=== PATIENT | female | born 1965 | race Caucasian/White ===

== ENCOUNTER → 2016-12-27 | Outpatient (CLI) | payer BC ==
[2016-12-27 20:24] LABS: ALT 40 U/L (9-52); AST 28 U/L (14-36); Alkaline Phosphatase 75 U/L (38-126); Anion Gap 10 mmol/L; Blood Urea Nitrogen 17 mg/dL (7-17); Calcium 9.5 mg/dL (8.4-10.2); Carbon Dioxide 29 mmol/L (22-30); Chloride 102 mmol/L (98-107); Glucose 81 mg/dL (74-99); Non-African American GFR(MDRD) >60 (>60 ml/min/1.73 sqM); Sodium 141 mmol/L (137-145); Total Bilirubin 0.5 mg/dL (0.2-1.3); Total Protein 6.7 g/dL (6.3-8.2)
[2016-12-27 20:27] LABS: Potassium 4.4 mmol/L (3.5-5.1)
== END | disposition home or self-care (01) ==
LOC: MMGSC 10:23
PROVIDERS: ATTEND Family Medicine
DX: R63.5 Abnormal weight gain (principal)
CPT/HCPCS: 36415; 80053; 84439; 84443

== ENCOUNTER → 2017-03-14 | Outpatient (CLI) | payer BC ==
[2017-03-14 09:45] LABS: Basophils % (A) 0 %; CH 30.5; CHCM 33.8; Eosinophils # (A) 0.2 k/uL (0-0.7); Eosinophils % (A) 2 %; HDW 2.28; HGB 14.1 gm/dL (11.4-16.0); Luc # (Auto) 0.13; Luc % (Auto) 2; Lymphocytes # (A) 1.6 k/uL (1.0-4.8); Lymphocytes % (A) 22 %; MCH 30.3 pg (25.0-35.0); MCHC 33.5 g/dL (31.0-37.0); MCV 90.6 fL (80.0-100.0); Mean Platelet Volume 7.6; Monocytes # (A) 0.3 k/uL (0-1.0); Monocytes % (A) 4 %; Neutrophils # (A) 5.2 k/uL (1.3-7.7); Neutrophils % (A) 70 %; RBC 4.64 m/uL (3.80-5.40); RDW 13.3 % (11.5-15.5); WBC 7.4 k/uL (3.8-10.6); WBC (Perox) 7.52
== END | disposition home or self-care (01) ==
LOC: LABPAT 09:06
PROVIDERS: ATTEND Orthopaedic Surgery
DX: Z01.812 Encounter for preprocedural laboratory examination (principal)
CPT/HCPCS: 85025

== ENCOUNTER 2017-03-29 06:41 | Day surgery (SDC) | payer BC ==
[2017-03-22 10:31] VITALS: BMI 36.3
--- NOTE | 2017-03-28 12:17 | HP ---
CHIEF COMPLAINT: Left knee pain. 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 Currently she is off work because of this. She is taking ibuprofen for pain relief. She denies previous problems. PAST MEDICAL HISTORY: Negative. PAST SURGICAL HISTORY: Significant for section. CURRENT MEDICATIONS: 1. Cyclobenzaprine. 2. Ibuprofen. 3. Simvastatin. 4. Tramadol. She denies drug allergies. Family history is significant for cancer and heart disease. SOCIAL HISTORY: Negative for current tobacco or alcohol use. A 16-point review of systems is otherwise reviewed and is noncontributory. On examination, the patient is approximately 5 foot 2, 201 pounds of endomorphic habitus. HEENT exam is nonfocal. Neck is supple. She has painless passive motion of her left hip. Straight leg raise is negative. Active motion left knee -10 to 105 degrees of flexion. She has moderate guarding. She has a large effusion. She is tender about the medial and lateral joint line. Collaterals are stable, Josemanuel is 1+, posterior drawer is negative. Her distal neurovascular exam appears to be intact in the left lower extremity. MRI report for the left knee shows a ACL rupture with lateral tibial plateau edema. IMPRESSION: Left knee acute ACL tear with hemarthrosis. RECOMMENDATIONS: I talked to the patient at length regarding her treatment options. At this point, she is quite symptomatic in having giving way. Will plan to proceed with left knee arthroscopic evaluation with probable ACL debridement. We will likely institute postoperative rehabilitation and potentially bracing. Risks and benefits are discussed at length in layman's terms. DONNA
[~2017-03-29 06:41] MED LIST: DEXAMETHASONE SOD PHOSPHATE 10 MG/ML 1 ML VIAL IV ONE; LACTATED RINGERS 1,000 ML IV SCH; MIDAZOLAM 2 MG/2 ML VIAL IV PRN; SCOPOLAMINE 1.5MG/72HR PATCH TRANSDERM ONE
[2017-03-29] MEDS ORDERED: LACTATED RINGERS 1,000 ML IV ONE ×2 (07:11→08:55)
[2017-03-29] MEDS ORDERED: LIDOCAINE 1% 20 ML VIAL (10MG/ML) FOR IV START INTRADERMA ONE (07:12)
[2017-03-29] MEDS: ONDANSETRON 4 MG/2 ML VIAL IVP ONE ×2 (07:12→10:20)
[2017-03-29] MEDS ORDERED: SODIUM CHLORIDE 0.9% 50 ML with ceFAZolin 2,000 MG IV ONE ×2 (07:50)
[2017-03-29] MEDS ORDERED: LIDOCAINE 1% INJ 10MG/ML (20 ML MDV) ONE (07:50)
[2017-03-29] MEDS ORDERED: MIDAZOLAM 2 MG/2 ML VIAL ONE (07:50)
[2017-03-29] MEDS ORDERED: SUCCINYLCHOLINE CHLORIDE 100 MG/5 ML SYR IV ONE (07:50)
[2017-03-29] MEDS ORDERED: ESMOLOL 100 MG/10 ML VIAL ONE (07:50)
[2017-03-29] MEDS ORDERED: fentaNYL (PF) 50 MCG/ML 2 ML AMP ONE (07:50)
[2017-03-29] MEDS ORDERED: KETOROLAC 30 MG/ML 1 ML VIAL ONE (07:50)
[2017-03-29] MEDS ORDERED: PROPOFOL 10 MG/ML 20 ML VIAL IV ONE (07:50)
--- NOTE | 2017-03-29 08:45 | P.OP ---
Date of Procedure: 03/29/17 Preoperative Diagnosis: Left knee ACL rupture Postoperative Diagnosis: Left knee ACL rupture, grade 2 chondral injury distal medial portion medial femoral condyle, reactive synovitis of the medial and patellofemoral compartments Procedure(s) Performed: Left knee arthroscopic ACL debridement, medial femoral chondrectomy, partial synovectomy of the medial and patellofemoral compartments Implants: Anesthesia: GETA Surgeon: Darrian Eastman Estimated Blood Loss (ml): 5 Pathology: none sent Condition: stable Disposition: PACU Indications for Procedure: The patient's a 51-year-old female who presents after a recent twisting injury to her left knee. She was having pain and mechanical symptoms consistent with an acute ACL rupture. A discussion of the risks and benefits of operative intervention versus conservative measures was made with patient. She opted to proceed with surgery. Operative options to include arthroscopic debridement versus ACL reconstruction were also discussed. At this point she opted to proceed with arthroscopic evaluation and debridement with postoperative rehabilitation. Specific risks of surgery to include infection, neurovascular injury, development of blood clots, possible persistence of instability and need for subsequent procedures was discussed. Informed consent was obtained. Operative Findings: As below Description of Procedure: The patient was brought to the operating room, and after induction of general anesthesia examined the left knee. Collaterals were stable, Josemanuel was 1+ with a soft endpoint, pivot shift was positive, and posterior drawer was negative. The left lower extremity was prepped and draped in normal fashion. A superior lateral portal was made through a 3 mm skin incision superior and lateral to the patella. This was used for outflow. A lateral portal was made through a 5 mm vertical skin incision lateral to the patella tendon above the joint line. Diagnostic arthroscopy was performed. A medial portal was made through a similar incision medial to the patella tendon above the joint line. On inspection of the medial compartment, the medial meniscus appeared to be stable and intact. A grade 2 chondral injury involving the distal medial portion of the medial femoral condyle was noted with a small loose chondral flap. This was debrided back to stable base with a motorized shaver. Reactive synovitis involving the anterior medial compartment was debrided with motorized shaver. A portion the ACL stump was also impinging on the medial compartment. This was debrided with motorized shaver back to stable base. On inspection of the notch, the anterior cruciate ligament appeared to be ruptured off the lateral wall. The remaining ligament appeared to be adherent to the posterior cruciate ligament. On inspection of the lateral compartment, no significant meniscal or cartilage pathology was noted. On inspection patellofemoral articulation, there was reactive synovitis to be with a motorized shaver. Minimal degenerative changes were noted. The gutters were clear debris. The knee was then thoroughly irrigated. The portals were closed with Steri-Strips. A sterile dressing was applied in addition to a compression stocking. The patient was awoken from general anesthesia and transferred to recovery room in good condition. Blood loss less than 5 mL. No complications were incurred.
[2017-03-29 08:53] VITALS: RESP 16; TEMP 97.1
[2017-03-29] MEDS: HYDROmorphone 1 MG/ML 1 ML SYRINGE IVP PRN ×4 (09:07→09:29)
[2017-03-29] MEDS: MEPERIDINE 50 MG/ML SYRINGE IVP ONE ×2 (09:53→10:07)
[2017-03-29] MEDS ORDERED: HYDROcodone/APAP 5-325MG 1 EACH TAB PO ONE (10:52)
[2017-03-29] MEDS ORDERED: PROMETHAZINE INJ 25 MG/ML 1 ML VIAL IVPB ONE (12:20)
[2017-03-29 12:40] VITALS: BP 138/82; PULSE 101
== END 2017-03-29 12:58 | disposition home or self-care (01) ==
LOC: OR 06:41
PROVIDERS: ATTEND Orthopaedic Surgery
DX: S83.32XA Tear of articular cartilage of left knee, current, initial encounter (principal); S83.512A Sprain of anterior cruciate ligament of left knee, initial encounter; X50.1XXA Overexertion from prolonged static or awkward postures, initial encounter; M65.862 Other synovitis and tenosynovitis, left lower leg; Z79.1 Long term (current) use of non-steroidal anti-inflammatories (NSAID); Z79.891 Long term (current) use of opiate analgesic; Z79.899 Other long term (current) drug therapy
CPT/HCPCS: 81025; 29888; J2250; J1100; J2550; J2175; J2405; J2001; J3010; J1885; J1170; J0690; J0330; J2704

== ENCOUNTER → 2017-05-08 | Outpatient (CLI) | payer BC | END | disposition home or self-care (01) | LOC: MMGSC 15:30 | PROVIDERS: ATTEND Family Medicine | DX: N92.6 Irregular menstruation, unspecified (principal) | CPT/HCPCS: 36415; 83001; 83002 ==

== ENCOUNTER → 2017-08-16 | Outpatient (CLI) | payer BC ==
[2017-08-16 18:52] LABS: ALT 38 U/L (9-52); AST 25 U/L (14-36); Albumin 4.1 g/dL (3.5-5.0); Alkaline Phosphatase 58 U/L (38-126); Anion Gap 9 mmol/L; Blood Urea Nitrogen 18 mg/dL (7-17); Calcium 9.7 mg/dL (8.4-10.2); Carbon Dioxide 27 mmol/L (22-30); Chloride 101 mmol/L (98-107); Cholesterol 185 mg/dL (<200); Glucose 84 mg/dL (74-99); HDL Cholesterol 53 mg/dL (40-60); LDL Cholesterol,Calculated 117 mg/dL (0-99); Potassium 4.3 mmol/L (3.5-5.1); Sodium 137 mmol/L (137-145); Total Bilirubin 0.4 mg/dL (0.2-1.3); Total Protein 6.8 g/dL (6.3-8.2); Triglycerides 77 mg/dL (<150)
== END | disposition home or self-care (01) ==
LOC: MMGSC 09:17
PROVIDERS: ATTEND Family Medicine
DX: E78.5 Hyperlipidemia, unspecified (principal)
CPT/HCPCS: 36415; 80053; 80061

== ENCOUNTER → 2018-02-21 | Outpatient (CLI) | payer BC ==
--- NOTE | 2018-02-21 08:50 | MR ---
EXAMINATION TYPE: MR cervical spine wo con DATE OF EXAM: 02/21/2018 COMPARISON: None HISTORY: Cervicalgia, popping in neck TECHNIQUE: Multiplanar, multisequence images of the cervical spine were acquired. C2-C3: No evidence for degenerative disc disease. No disc bulge/herniation or protrusion. No Canal stenosis. Foramina are patent bilaterally. Mild hypertrophic change of the facets. C3-C4: No evidence for degenerative disc disease. No disc bulge/herniation or protrusion. No Canal stenosis. Foramina are patent bilaterally. Mild hypertrophic change of the facets. C4-C5: Mild uncovertebral joint hypertrophy. Mild hypertrophic change of the facets. Minimal posterio r disc bulging but no canal stenosis or focal herniation. Mild bilateral foraminal encroachment. C5-C6: No evidence for degenerative disc disease. No disc bulge/herniation or protrusion. No Canal stenosis. Foramina are patent bilaterally. Mild hypertrophic change of the facets. Mild uncovertebra l joint hypertrophy. C6-C7: No evidence for degenerative disc disease. No disc bulge/herniation or protrusion. No Canal stenosis. Foramina are patent bilaterally. C7-T1: No evidence for degenerative disc disease. No disc bulge/herniation or protrusion. No Canal stenosis. Foramina are patent bilaterally. Cervical segments are intact. There is normal alignment. Cervical spinal cord is of normal signal. Craniovertebral junction relationships are within normal limits. Tiny 3 mm cystic area near the pos terior aspect of the left lobe of the thyroid adjacent to the esophagus is nonspecific due to small s ize. IMPRESSION: Multilevel mild facet arthropathy with minimal disc bulging and uncovertebral joint hypertrophy at C4 -C5 resulting in very mild bilateral foraminal encroachment. No disc herniation or canal stenosis at any of the visualized levels.
== END | disposition home or self-care (01) ==
LOC: RADMRIMAIN 08:09
PROVIDERS: ATTEND Psychiatry & Neurology Neurology
DX: M48.8X2 Other specified spondylopathies, cervical region (principal); M50.221 Other cervical disc displacement at C4-C5 level
CPT/HCPCS: 72141

== ENCOUNTER → 2019-10-21 | Day surgery (SDC) | payer BC ==
[2019-10-21 08:39] VITALS: RESP 16
--- NOTE | 2019-10-21 09:36 | P.OP ---
Date of Procedure: 10/21/19 Preoperative Diagnosis: Mammographic abnormality right breast/heterogeneous microcalcifications Postoperative Diagnosis: Same Procedure(s) Performed: Right breast stero-tactic core biopsy Anesthesia: local Surgeon: Sherry Saini Pathology: other (Breast tissue) Condition: stable Disposition: same day Indications for Procedure: Heterogeneous microcalcifications right breast Operative Findings: Microcalcifications in specimen Description of Procedure: Angela is a 54-year-old white female who had a routine mammogram performed in September 2019. She was noted to have heterogeneous calcifications in the upper outer quadrant of the right breast for which biopsy was recommended. Risks and benefits of stereotactic core biopsy were discussed with the patient. Alternatives which would include watchful waiting versus open biopsy in the operating room were discussed but not recommended. The patient wished to proceed. Patient was taken to stereotactic core biopsy room and positioned on the Lorad table. A CC from above approach was utilized. A dental scheduler film was obtained in the area of concern was identified. The skin was prepped using Betadine. 30 mL of 1% lidocaine were used to anesthetize the area of concern. 20 mL had epinephrine in it. An 18-gauge vacuum-assisted core rotating biopsy needle was driven to the correct coordinates. The needle was fired and a post-fire film noted that the needle was in the correct location. 11 core biopsies were obtained. Radiograph of the specimen revealed the area of concern had been obtained. A secure marked marker was placed. This was confirmed to be in the correct location. The specimen was sent to pathology. The patient will follow with Dr. Romero. The patient tolerated the procedure in stable condition.
[2019-10-21 09:44] VITALS: BP 116/73; PULSE 92; TEMP 97.8
--- NOTE | 2019-10-21 11:23 | MM ---
EXAMINATION TYPE: MG stereo VAD BX RT DATE OF EXAM: 10/21/2019 COMPARISON: Outside diagnostic mammogram dated 10/12/2019 CLINICAL HISTORY: Indeterminate right breast calcifications for which stereotactic guided biopsy was recommended. TECHNIQUE: Stereotactic guided core biopsy of right breast. FINDINGS: The procedure of stereotactic guided core biopsy was explained to the patient. Benefits, a lternatives, and risks were discussed. An informed consent was then obtained. Preprocedural timeout was performed. [facility] was [facility]. Shortness pathway was CC from above approach. I perform ed the localization, then surgeon, Dr. Nick Devi performed the remainder of the procedure. A vacuum assisted biopsy gun was used to obtain multiple core samples. The patient tolerated the procedure well without any immediate complication. The patient was kept in the radiology department for short stay after the procedure and then discharged home in stable condi tion. Targeted calcifications are identified in specimen mammogram. Post biopsy mammogram shows the clip to appear in satisfactory position relative to the targeted area of concern on the preprocedure images. IMPRESSION: SUCCESSFUL, UNCOMPLICATED STEREOTACTIC GUIDED CORE BIOPSY OF RIGHT UPPER OUTER QUADRANT CALCIFICATION S SPANNING APPROXIMATELY 5 MM, FULL PATHOLOGY RESULTS TO FOLLOW.
== END ==
LOC: RADMAMWWP 07:28
PROVIDERS: ATTEND Surgery
DX: N60.11 Diffuse cystic mastopathy of right breast (principal); R92.0 Mammographic microcalcification found on diagnostic imaging of breast
CPT/HCPCS: 88305; 19081; A4648; J2001

== ENCOUNTER → 2019-10-21 | Outpatient (CLI) | payer BC ==
[2019-10-21 07:53] VITALS: BP 113/77; PULSE 94; RESP 16; TEMP 97.9
--- NOTE | 2019-10-21 08:29 | P.GSHP ---
History of Present Illness H&P Date: 10/21/19 Chief Complaint: Mammographic abnormality right breast [Is a 54-year-old white female who had a routine screening mammogram performed on . This revealed an area of indeterminate calcifications in the lateral aspect of the right breast the upper outer quadrant region. The patient was recommended to have a diagnostic mammogram of the right breast which was performed and 220 420. This revealed grouped heterogeneous calcifications upper outer quadrant for which stereotactic core biopsy was recommended. The patient herself has not felt any changes in her breasts. She has no history of any trauma or infection in the breast. She has not had any prior breast biopsies. She is not complaining of any pain in the breast. She is not complaining of any masses lumps or nodules in the breast. Caffeine: 2 cups of coffee per day Nicotine: The patient does not smoke and is not exposed to secondhand smoke, she used to smoke but stopped 27 years ago Theophylline: Patient does not eat chocolate secondary to migraine headaches The patient is not using any hormone replacement therapy, does use black cohash Family history: mother: ovarian at 32 Hormonal History: menarche: 13 , 1 miscarriage, first born at 40, breast fed: yes menopause: 53, hot flashes now BCP: 18 years hormones: black cohash Surgical history: 1. two C-Sections 2. left knee surgery 3. back nerves "burned" Medical History: 1. back pain, DJD 2. left wrist, deterating 3. arthritis 4. migraines 5. hypothyroid Social History: smoke: none alcohol: wine on weekend drugs: none - Constitutional Constitutional: Reports sweats - EENT Eyes: denies blurred vision, denies pain Ears: deny: decreased hearing, tinnitus Ears, nose, mouth and throat: Reports headache - Breasts Breasts: bilateral: as per HPI - Cardiovascular Cardiovascular: Denies chest pain, Denies shortness of breath - Respiratory Comment: former smoker Respiratory: Denies cough, Denies 7 - Gastrointestinal Comment: had a colonoscopy last year told to return in 5 years Gastrointestinal: Reports constipation - Genitourinary (Female) Genitourinary: Denies dysuria, Denies hematuria - Menstruation Menstruation: Reports postmenopausal - Musculoskeletal Comment: arthritis - Integumentary Integumentary: Denies pruritus, Denies rash - Neurological Neurological: Denies numbness, Denies weakness - Psychiatric Psychiatric: Denies anxiety, Denies depression - Endocrine Comment: fatigue Endocrine: Reports fatigue, Denies weight change - Hematologic/Lymphatic Comment: none - Allergic/Immunologic Allergic/Immunologic: Reports as per HPI Past Medical History Past Medical History: Hyperlipidemia, Thyroid Disorder Additional Past Medical History / Comment(s): migraines; degenerative disc disease lumbar; History of Any Multi-Drug Resistant Organisms: None Reported Past Surgical History: Section, Orthopedic Surgery Additional Past Surgical History / Comment(s): left knee surgery repair 2016; section x2 2005 & 2007; radiofrequency ablation of lumbar spine 2000; Past Anesthesia/Blood Transfusion Reactions: No Reported Reaction Past Psychological History: No Psychological Hx Reported Smoking Status: Former smoker Past Alcohol Use History: None Reported Past Drug Use History: None Reported - Past Family History Mother Family Medical History: Cancer Additional Family Medical History / Comment(s): ovarian; passed from an aneurysm at age 55; Medications and Allergies Home Medications Medication Instructions Recorded Confirmed Type Cyclobenzaprine [Flexeril] 10 mg PO HS 03/22/17 10/21/19 History Ibuprofen [Motrin] 800 mg PO Q6H PRN 03/22/17 10/21/19 History Simvastatin [Zocor] 10 mg PO HS 03/22/17 10/21/19 History ZOLMitriptan 5 mg PO DAILY PRN 03/22/17 10/21/19 History Black Cohosh 540 mg PO AC-LUNCH 10/15/19 10/21/19 History Levothyroxine Sodium [Synthroid] 75 mcg PO QAM 10/15/19 10/21/19 History Linaclotide [Linzess] 145 mcg PO QAM 10/15/19 10/21/19 History Topiramate [Topamax] 25 mg PO HS 10/15/19 10/21/19 History Allergies Allergy/AdvReac Type Severity Reaction Status Date / Time No Known Allergies Allergy Verified 10/21/19 07:40 Surgical - Exam Vital Signs Temp Pulse Resp BP Pulse Ox 97.9 F 94 16 113/77 97 10/21/19 07:43 10/21/19 07:43 10/21/19 07:43 10/21/19 07:43 10/21/19 07:43 BMI 32.7 - General well developed, well nourished, no distress - Eyes normal ocular movement - ENT no hearing loss, no congestion - Neck no masses, trachea midline - Respiratory normal expansion, normal respiratory effort, clear to percussion, clear to auscultation - Cardiovascular Rhythm: regular Heart Sounds: normal: S1, S2 - Abdomen Abdomen: soft, non tender, bowel sounds, no guarding, no rigid, no rebound - Integumentary normal turgor - Neurologic no disoriented, no combative - Musculoskeletal brace on left wrist normal gait, normal posture - Psychiatric oriented to time, oriented to person, oriented to place, speech is normal, memory intact breast exam: BRA 40D ptosis grade 3 Inspection: No nipple inversion, dark nevus left axilla Palpation: Right breast: Multi-positional exam no dominant masses or nodules of concern fibrocystic changes slight increased fullness in the upper outer aspect right axilla: no adenopathy of concern left breast: multi-positional exam no dominate masses or nodules of concern left axilla: no adenopathy of concern Results Mammogram results reviewed Assessment and Plan Assessment: Impression: 1. Radiographic abnormality heterogeneous microcalcifications right breast upper outer quadrant 2. Left breast no radiographic lesions of concern 3. Fibrocystic breast changes 4. Family history of cancer/mother ovarian cancer 5. Arthritis 6. Degenerative disc disease 7. Hypothyroidism 8. Migraine history 9. Menopausal/recently started black cohosh 1. Former smoker Plan: 1. Stereotactic core biopsy right breast 2. Extra caution this patient is positioned on the stereotactic table secondary to back pain and degenerative disc disease 3. Patient has stopped Motrin approximately 1 week prior This and benefits of the procedure I discussed with the patient. These include bleeding, infection, reaction to the anesthetic. We also include the possibility that the area of concern is not sampled with that the area of concern. Have a lesion which was warrant interventional biopsy. The patient understands and wishes to proceed. She also understands that a marking clip left in place. Alternative procedures which would include observation or excision in the operating room I also discussed but not recommended at this time. Cc: Dr.Laura Curran encounter 35 minutes, > 50% of time spent in planning and counselling Time with Patient: Greater than 30
== END ==
LOC: WWCWWP 07:15
PROVIDERS: ATTEND Surgery
DX: Z53.9 Procedure and treatment not carried out, unspecified reason (principal)

== ENCOUNTER → 2020-04-21 | Outpatient (CLI) | payer BC | END | disposition home or self-care (01) | LOC: LABWHC1 13:01 | PROVIDERS: ATTEND Family Medicine | DX: Z03.818 Encounter for observation for suspected exposure to other biological agents ruled out (principal) | CPT/HCPCS: U0003; C9803 ==

== ENCOUNTER → 2020-04-27 | Outpatient (CLI) | payer BC ==
--- NOTE | 2020-04-27 08:57 | MM ---
Reason for exam: follow-up at short interval from prior study. Last mammogram was performed 6 months ago. History: Patient is postmenopausal and had first child at age 40. Benign MG stereo VAD BX RT of the right breast, October 21, 2019. Physical Findings: Nurse did not find any significant physical abnormalities on exam. MG 3D Diag Mammo W/Cad RT CC and MLO view(s) were taken of the right breast. Prior study comparison: October 21, 2019, mammogram. October 05, 2019, mammogram. July 25, 2018, mammogram. The breast tissue is heterogeneously dense. This may lower the sensitivity of mammography. Previous mammotome biopsy in the right breast. There is chronic nodularity in the right breast. No significant new findings when compared with previous films. These results were verbally communicated with the patient and result sheet given to the patient on 04/27/20. ASSESSMENT: Benign, BI-RAD 2 RECOMMENDATION: Routine screening mammogram of both breasts in 6 months.
== END | disposition home or self-care (01) ==
LOC: RADMAMWWP 07:34
PROVIDERS: ATTEND Surgery
DX: R92.8 Other abnormal and inconclusive findings on diagnostic imaging of breast (principal)
CPT/HCPCS: 77061; 77065

== ENCOUNTER → 2020-06-02 | Outpatient (CLI) | payer BC ==
--- NOTE | 2019-11-04 10:59 | P.PN ---
Progress Note - Text Progress Note Date: 11/04/19 Angela is a 55 year old whtie female who is status post a right breast stereotactic core biopsy performed on 3420. Pathology revealed fibrocystic changes including fibrosis, cysts, sclerosing adenosis, apocrine metaplasia, and calcifications. Intraluminal calcium oxalate crystals were identified. This was felt to be concordant and repeat right breast mammogram in 6 months time with physician exam is recommended. [place] [address] postoperatively. However secondary to diffuse regarding the chin virus she was rescheduled for a 6 month follow-up. The patient at this time denies any pain masses infection or ecchymosis of the breast. She states that initially post procedure she had some discomfort but this has resolved. I've discussed the patient's pathology results with her. She has discussed with me the fact that she has had a cough routinely in both the following spring of the year. At times the cough is dry but does not seem to be dry at this time. She is taking her temperature daily as she is concerned regarding the chin virus. If she has any worrisome symptoms she will follow with her primary care doctor. At this time with respect to her breast she is to follow up with us in 6 months with repeat right breast mammogram. If any other concerns she will follow sooner. This was a telephone call: Time 5 minutes
[2020-06-02 15:43] VITALS: BP 116/75; PULSE 91; RESP 12; TEMP 98.3
--- NOTE | 2020-06-02 15:59 | P.PN ---
Subjective Progress Note Date: 06/02/20 Principal diagnosis: fibrocystic breast disease [Is a 54-year-old white female who had a routine screening mammogram performed on . This revealed an area of indeterminate calcifications in the lateral aspect of the right breast the upper outer quadrant region. The patient was recommended to have a diagnostic mammogram of the right breast which was performed and [address]. This revealed grouped heterogeneous calcifications upper outer quadrant for which stereotactic core biopsy was recommended. This was preformed and the results were benign. She has no history of any trauma or infection in the breast. She is not complaining of any pain in the breast. She is not complaining of any masses lumps or nodules in the breast. She had a six-month follow-up right breast mammogram on 99 this was benign BIRADS 2. Caffeine: 2 cups of coffee per day Nicotine: The patient does not smoke and is not exposed to secondhand smoke, she used to smoke but stopped 27 years ago Theophylline: Patient does not eat chocolate secondary to migraine headaches The patient is not using any hormone replacement therapy, does use black cohash Family history: mother: ovarian at 32 Hormonal History: menarche: 13 , 1 miscarriage, first born at 40, breast fed: yes menopause: 53, hot flashes now BCP: 18 years hormones: black cohash Surgical history: 1. two C-Sections 2. left knee surgery 3. back nerves "burned" 4. left hand surgery; bone removed and tendon replaced in spot Medical History: 1. back pain, DJD 2. left wrist, deteriorating 3. arthritis 4. migraines 5. hypothyroid Social History: smoke: none alcohol: wine on weekend drugs: none - Constitutional Constitutional: Reports sweats - EENT Eyes: denies blurred vision, denies pain Ears: deny: decreased hearing, tinnitus Ears, nose, mouth and throat: Reports headache - Breasts Breasts: bilateral: as per HPI - Cardiovascular Cardiovascular: Denies chest pain, Denies shortness of breath - Respiratory Comment: former smoker Respiratory: Denies cough - Gastrointestinal Comment: had a colonoscopy last year told to return in 5 years Gastrointestinal: Reports constipation - Genitourinary (Female) Genitourinary: Denies dysuria, Denies hematuria - Menstruation Menstruation: Reports postmenopausal - Musculoskeletal Comment: arthritis - Integumentary Integumentary: Denies pruritus, Denies rash - Neurological Neurological: Denies numbness, Denies weakness - Psychiatric Psychiatric: Denies anxiety, Denies depression - Endocrine Comment: fatigue Endocrine: Reports fatigue, Denies weight change - Hematologic/Lymphatic Comment: none Objective - Vital Signs Vital signs: Vital Signs Temp 98.3 F 06/02/20 15:37 Pulse 91 06/02/20 15:37 Resp 12 06/02/20 15:37 BP 116/75 06/02/20 15:37 Pulse Ox 98 06/02/20 15:37 Intake & Output 06/01/20 06/02/20 06/02/20 18:59 06:59 18:59 Weight 87.543 kg - Exam BMI 35.3 - Constitutional General appearance: Present: obese - EENT ENT: Present: hearing grossly normal - Neck Neck: Present: normal ROM - Respiratory Respiratory: bilateral: CTA - Cardiovascular Rhythm: regular Heart sounds: normal: S1, S2 - Gastrointestinal General gastrointestinal: Present: normal bowel sounds, soft - Integumentary Integumentary: Present: normal turgor - Musculoskeletal Musculoskeletal: Present: gait normal - Psychiatric Psychiatric: Present: A&O x's 3, appropriate affect, intact judgment & insight - Additional findings Additional findings: breast exam: BRA: 42B inspection: grade 3 ptosis bilateral Palpation: Right breast: Multi-positional exam no dominant masses or nodules of concern Right axilla: No adenopathy of concern Left breast: Multi-positional exam no dominant masses or nodules of concern, fibrocystic changes Left axilla: No adenopathy of concern Assessment and Plan Assessment: Impression: 1. back pain, DJD 2. left wrist, deteriorating 3. arthritis 4. migraines 5. hypothyroid 6. Fibrocystic breast changes bilateral recent right breast mammogram no lesions of concern Plan: 1. Bilateral mammogram in 6 months with position exam at that time 2. Medical management of medical conditions CC: Dr. Mercer encounter 15 minutes, > 50% of time in planning and counselling
== END | disposition home or self-care (01) ==
LOC: WWCWWP 14:55
PROVIDERS: ATTEND Surgery
DX: Z53.9 Procedure and treatment not carried out, unspecified reason (principal)

== ENCOUNTER → 2020-10-26 | Outpatient (CLI) | payer BC ==
--- NOTE | 2020-10-27 13:45 | MM ---
Reason for exam: screening (asymptomatic). Last mammogram was performed 6 months ago. History: Patient is postmenopausal and had first child at age 40. Benign MG stereo VAD BX RT of the right breast, October 21, 2019. Taking estrogen beginning at age 55. Physical Findings: A clinical breast exam by your physician is recommended on an annual basis and results should be correlated with mammographic findings. MG Screening Mammo w CAD Bilateral CC and MLO view(s) were taken. Prior study comparison: April 27, 2020, right breast MG 3d diag mammo w/cad RT. October 21, 2019, mammogram. The breast tissue is heterogeneously dense. This may lower the sensitivity of mammography. Previous mammotome biopsy in the right breast. No significant changes when compared with prior studies. ASSESSMENT: Benign, BI-RAD 2 RECOMMENDATION: Routine screening mammogram of both breasts in 1 year.
== END | disposition home or self-care (01) ==
LOC: RADMAMWWP 08:46
PROVIDERS: ATTEND Surgery
DX: Z12.31 Encounter for screening mammogram for malignant neoplasm of breast (principal)
CPT/HCPCS: 77067

== ENCOUNTER → 2020-11-03 | Outpatient (CLI) | payer BC | END | disposition home or self-care (01) | LOC: LABWHC1 15:27 | PROVIDERS: ATTEND Family Medicine | DX: Z20.822 Contact with and (suspected) exposure to COVID-19 (principal) | CPT/HCPCS: U0003; C9803; U0005 ==

== ENCOUNTER → 2020-12-09 | Outpatient (CLI) | payer BC ==
[2020-12-09 08:52] VITALS: BP 118/79; PULSE 100; RESP 18; TEMP 97.6
--- NOTE | 2020-12-09 09:25 | P.PN ---
Subjective Progress Note Date: 12/09/20 Principal diagnosis: fibrocystic breast disease fibrocystic breast disease Angela is a 55-year-old white female who had a routine screening mammogram performed on . This revealed an area of indeterminate calcifications in the lateral aspect of the right breast the upper outer quadrant region. The patient was recommended to have a diagnostic mammogram of the right breast which was performed on . This revealed grouped heterogeneous calcifications upper outer quadrant for which stereotactic core biopsy was recommended. This was preformed and the results were benign. She had no history of any trauma or infection in the breast. She was not complaining of any pain in the breast. She was not complaining of any masses lumps or nodules in the breast. She had a six-month follow-up right breast mammogram on 9919 this was benign BIRADS 2. She most recently had a bilateral mammogram on 10-26-20. This was benign BIRAD 2. She has no complaints of any new lumps masses or nodules of concern in her breast. She is not complaining of any nipple discharge or skin changes. She is not complaining of any pain in her breasts. Caffeine: 2 cups of coffee per day Nicotine: The patient does not smoke and is not exposed to secondhand smoke, she used to smoke but stopped 28 years ago Theophylline: Patient does not eat chocolate secondary to migraine headaches The patient is not using any hormone replacement therapy, was using black cohash but now uses YUVFEM this is from DR. Fuentes and is a vaginal suppository Family history: mother: ovarian cancer at 32 Hormonal History: menarche: 13 , 1 miscarriage, first born at 40, breast fed: yes menopause: 53, hot flashes improved still occasional BCP: 18 years hormones: YUVFEM Surgical history: 1. two C-Sections 2. left knee surgery 3. back nerves "burned" 4. left hand surgery; bone removed and tendon replaced in spot Medical History: 1. 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 left wrist, deteriorating 3. arthritis 4. migraines 5. hypothyroid Social History: smoke: none alcohol: wine on weekend drugs: none - Constitutional Constitutional: Reports sweats - EENT Eyes: denies blurred vision, denies pain Ears: deny: decreased hearing, tinnitus Ears, nose, mouth and throat: Reports headache - Breasts Breasts: bilateral: as per HPI - Cardiovascular Cardiovascular: Denies chest pain, Denies shortness of breath - Respiratory Comment: former smoker Respiratory: Denies cough - Gastrointestinal Comment: had a colonoscopy last year told to return in 5 years Gastrointestinal: Reports constipation - Genitourinary (Female) Genitourinary: Denies dysuria, Denies hematuria - Menstruation Menstruation: Reports postmenopausal - Musculoskeletal Comment: arthritis - Integumentary Integumentary: Denies pruritus, Denies rash - Neurological Neurological: Denies numbness, Denies weakness - Psychiatric Psychiatric: Denies anxiety, Denies depression - Endocrine Comment: fatigue Endocrine: Reports fatigue, Denies weight change - Hematologic/Lymphatic Objective - Vital Signs Vital signs: Vital Signs Temp 97.6 F 12/09/20 08:50 Pulse 100 12/09/20 08:50 Resp 18 12/09/20 08:50 BP 118/79 12/09/20 08:50 Pulse Ox 97 12/09/20 08:50 Intake & Output 12/08/20 12/09/20 12/09/20 18:59 06:59 18:59 Weight 90.265 kg - Exam BMI 36.4 - Constitutional General appearance: Present: obese - EENT Eyes: Present: EOMI ENT: Present: hearing grossly normal - Neck Neck: Present: normal ROM - Respiratory Respiratory: bilateral: CTA - Cardiovascular Rhythm: regular Heart sounds: normal: S1, S2 - Integumentary Integumentary: Present: normal turgor - Musculoskeletal Musculoskeletal: Present: gait normal - Psychiatric Psychiatric: Present: A&O x's 3, appropriate affect, intact judgment & insight - Additional findings Additional findings: Breast exam: BRA: 38C inspection: grade 3 ptosis bilateral palpation: right breast: Multi-positional exam fibrocystic changes, no dominant masses or nodules of concern Right axilla: No adenopathy of concern Left breast: Multi-positional exam fibrocystic changes, dominant masses or nodules of concern Left axilla: No adenopathy of concern Assessment and Plan Assessment: Impression: 1. Fibrocystic breast changes 2. Perimenopausal symptoms of vaginal dryness recently started vaginal suppository YUVFEM 3. Status post stereotactic core biopsy 3420 fibrocystic breast changes Plan: 1. Close surveillance 2. Repeat bilateral mammogram in 1 year with physician exam at that time 3. Patient to call sooner if any questions or concerns CC: Dr. Curran, Dr. Fuentes
== END ==
LOC: WWCWWP 08:37
PROVIDERS: ATTEND Surgery
DX: N60.11 Diffuse cystic mastopathy of right breast (principal); N60.12 Diffuse cystic mastopathy of left breast; N89.8 Other specified noninflammatory disorders of vagina; E03.9 Hypothyroidism, unspecified; Z87.891 Personal history of nicotine dependence

== ENCOUNTER → 2021-10-30 | Outpatient (CLI) | payer BC ==
--- NOTE | 2021-10-31 11:02 | MM ---
Reason for exam: screening (asymptomatic). Last mammogram was performed 1 year ago. History: Patient is postmenopausal and had first child at age 40. Benign MG stereo VAD BX RT of the right breast, October 21, 2019. Taking estrogen beginning at age 55. Physical Findings: A clinical breast exam by your physician is recommended on an annual basis and results should be correlated with mammographic findings. MG Screening Mammo w CAD Bilateral CC, MLO, and XCCL view(s) were taken. Prior study comparison: October 26, 2020, bilateral MG screening mammo w CAD. April 27, 2020, right breast MG 3d diag mammo w/cad RT. There are scattered fibroglandular densities. Previous mammotome biopsy in the right breast. There is chronic nodularity in the right breast. There is no discrete abnormality. ASSESSMENT: Benign, BI-RAD 2 RECOMMENDATION: Routine screening mammogram of both breasts in 1 year.
== END | disposition home or self-care (01) ==
LOC: RADMAMWWP 08:53
PROVIDERS: ATTEND Surgery
DX: Z12.31 Encounter for screening mammogram for malignant neoplasm of breast (principal)
CPT/HCPCS: 77067

== ENCOUNTER → 2021-12-07 | Outpatient (CLI) | payer BC ==
[2021-12-07 08:47] VITALS: BP 120/84; PULSE 106; RESP 18; TEMP 97.8
--- NOTE | 2021-12-07 09:13 | P.PN ---
Subjective Progress Note Date: 12/07/21 Principal diagnosis: Fibrocystic breast changes fibrocystic breast disease fibrocystic breast disease Angela is a 56-year-old white female who had a routine screening mammogram performed on . This revealed an area of indeterminate calcifications in the lateral aspect of the right breast the upper outer quadrant region. The patient was recommended to have a diagnostic mammogram of the right breast which was performed on . This revealed grouped heterogeneous calcifications upper outer quadrant for which stereotactic core biopsy was recommended. This was preformed and the results were benign. She had no history of any trauma or infection in the breast. She was not complaining of any pain in the breast. She was not complaining of any masses lumps or nodules in the breast. She had a six-month follow-up right breast mammogram on 9919 this was benign BIRADS 2. She most recently had a bilateral mammogram on 10-30-21. This was benign BIRAD 2. She has no complaints of any new lumps masses or nodules of concern in her breast. She is not complaining of any nipple discharge or skin changes. She is not complaining of any pain in her breasts. Caffeine: 2 cups of coffee per day Nicotine: The patient does not smoke and is not exposed to secondhand smoke, she used to smoke but stopped 28 years ago Theophylline: Patient does not eat chocolate secondary to migraine headaches The patient had been using hormone replacement therapy, but has stopped was using black cohash but stopped, also stopped using YUVFEM from DR. Fuentes and is a vaginal suppository She is not using anything at this time but is having hot flashes; She has an appointment with Dr. Fuentes located near [facility] Family history: mother: ovarian cancer at 32 Hormonal History: menarche: 13 , 1 miscarriage, first born at 40, breast fed: yes menopause: 53, hot flashes improved still occasional BCP: 18 years hormones: YUVFEM Surgical history: 1. two C-Sections 2. left knee surgery 3. back nerves "burned" 4. left hand surgery; bone removed and tendon replaced in spot Medical History: 1. 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 left wrist, deteriorating 3. arthritis 4. migraines 5. hypothyroid Social History: smoke: none alcohol: wine on weekend drugs: none - Constitutional Constitutional: Reports sweats - EENT Eyes: denies blurred vision, denies pain Ears: deny: decreased hearing, tinnitus Ears, nose, mouth and throat: Reports headache - Breasts Breasts: bilateral: as per HPI - Cardiovascular Cardiovascular: Denies chest pain, Denies shortness of breath - Respiratory Comment: former smoker Respiratory: Denies cough - Gastrointestinal Comment: had a colonoscopy last year told to return in 5 years Gastrointestinal: Reports constipation - Genitourinary (Female) Genitourinary: Denies dysuria, Denies hematuria - Menstruation Menstruation: Reports postmenopausal - Musculoskeletal Comment: arthritis - Integumentary Integumentary: Denies pruritus, Denies rash - Neurological Neurological: Denies numbness, Denies weakness - Psychiatric Psychiatric: Denies anxiety, Denies depression - Endocrine Comment: fatigue Endocrine: Reports fatigue, Denies weight change - Hematologic/Lymphatic Objective - Vital Signs Vital signs: Vital Signs Temp 97.8 F 12/07/21 08:44 Pulse 106 H 12/07/21 08:44 Resp 18 12/07/21 08:44 BP 120/84 12/07/21 08:44 Pulse Ox 95 12/07/21 08:44 Intake & Output 12/06/21 12/07/21 12/07/21 18:59 06:59 18:59 Weight 106.141 kg - Exam BMI 41.5 - Constitutional General appearance: Present: cooperative - EENT Eyes: Present: EOMI ENT: Present: hearing grossly normal - Neck Neck: Present: normal ROM - Respiratory Respiratory: bilateral: CTA - Cardiovascular Rhythm: regular Heart sounds: normal: S1, S2 - Integumentary Integumentary: Present: normal turgor - Musculoskeletal Musculoskeletal: Present: gait normal - Psychiatric Psychiatric: Present: A&O x's 3, appropriate affect, intact judgment & insight - Additional findings Additional findings: Breast examination: Bra: 42C Inspection: Grade 3 ptosis bilaterally Palpation: Purpose: Multiple positional exam fibrocystic changes no dominant masses or nodules of concern Axilla: No active adenopathy of concern Left breast: Multiple positional exam fibrocystic changes no dominant masses or nodules of concern Left axilla: No adenopathy of concern Assessment and Plan Assessment: Impression: 1. 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 left wrist, deteriorating 3. arthritis 4. migraines 5. hypothyroid 6. Fibrocystic breast changes Plan: Repeat bilateral mammogram in 1 year Patient to follow up with [facility] secondary to hot flashes symptomatic Follow-up here in 1 year Cc: Dr. Fuentes
== END ==
LOC: WWCWWP 08:36
PROVIDERS: ATTEND Surgery
DX: N60.11 Diffuse cystic mastopathy of right breast (principal); N60.12 Diffuse cystic mastopathy of left breast; M54.9 Dorsalgia, unspecified; M19.90 Unspecified osteoarthritis, unspecified site; G43.909 Migraine, unspecified, not intractable, without status migrainosus; E03.9 Hypothyroidism, unspecified; Z87.891 Personal history of nicotine dependence; Z91.048 Other nonmedicinal substance allergy status

== ENCOUNTER 2022-08-03 09:53 | Day surgery (SDC) | payer BC ==
[2022-08-01 11:54] VITALS: BMI 43.4
[2022-08-03] MEDS ORDERED: LACTATED RINGERS 1,000 ML IV SCH (10:37)
[2022-08-03 10:53] VITALS: RESP 16; TEMP 97.2
[2022-08-03] MEDS ORDERED: ONDANSETRON 4 MG/2 ML VIAL ONE (10:58)
[2022-08-03] MEDS ORDERED: ONDANSETRON 4 MG/2 ML VIAL IVP ONE (10:59)
[2022-08-03] MEDS ORDERED: fentaNYL (PF) 50 MCG/1 ML VIAL IV ONE (11:02)
[2022-08-03] MEDS ORDERED: PROPOFOL 10 MG/ML 20 ML VIAL IV ONE (11:51)
[2022-08-03] MEDS ORDERED: LIDOCAINE 2% INJ 20 MG/ML (2 ML VIAL) ONE (11:51)
--- NOTE | 2022-08-03 12:08 | P.PCN ---
Date of Procedure: 08/03/22 Procedure(s) Performed: BRIEF HISTORY: Patient is a 57-year-old pleasant female scheduled for an elective colonoscopy as a part of evaluation of prior history of colon polyps. Her last colonoscopy was 5 years ago. PROCEDURE PERFORMED: Colonoscopy. PREOPERATIVE DIAGNOSIS:history of colon polyps . IV sedation per Anesthesia. PROCEDURE: After informed consent was obtained, the patient, was brought into the endoscopy unit. IV sedation was administered by Anesthesia under continuous monitoring. Digital rectal examination was normal. Initially the Olympus CF-160 flexible video colonoscope was then inserted in the rectum, gradually advanced into the cecum without any difficulty. Careful examination was performed as the scope was gradually being withdrawn. Ileocecal valve and the appendiceal orifice were visualized and appeared normal. Prep was excellent. Mucosa of the cecum, ascending colon, transverse colon, descending colon, sigmoid colon, and rectum appeared normal. Retroflexion was performed in the rectum and small internal hemorrhoids were seen. The patient tolerated the procedure well. IMPRESSION: Normal-appearing colon from rectum to cecum with no evidence of colorectal neoplasia. RECOMMENDATIONS: Findings of this examination were discussed with the patient as well as a family. She was advised to have a repeat screening colonoscopy in 10 years.
[2022-08-03 12:20] VITALS: PULSE 98
[2022-08-03 12:45] VITALS: BP 138/75
[2022-08-03] MEDS ORDERED: ONDANSETRON ODT 4 MG TAB PO ONE (13:11)
== END 2022-08-03 13:22 | disposition home or self-care (01) ==
LOC: ORWHC2ENDO 09:53
PROVIDERS: ATTEND Internal Medicine Gastroenterology
DX: Z12.11 Encounter for screening for malignant neoplasm of colon (principal); Z86.010 Personal history of colon polyps; K64.8 Other hemorrhoids
CPT/HCPCS: 45378; J2405; J2704; J2001; J3010

== ENCOUNTER → 2022-10-30 | Outpatient (CLI) | payer BC ==
--- NOTE | 2022-10-31 08:58 | MM ---
Reason for Exam: Screening (asymptomatic). Last screening mammogram was performed 12 month(s) ago. Patient History: Menarche at age 14. First Full-Term at age 40. Late child-bearing (after 30). Postmenopausal. Currently using Estrogen, starting at age 55. Currently using Progesterone, starting at age 57. 10/21/2019, Benign Core Biopsy on the right side. Risk Values: Viola 5 year model risk: 1.9%. NCI Lifetime model risk: 13.1%. Prior Study Comparison: 04/27/2020 Right Diagnostic Mammogram, [facility]. 10/26/2020 Bilateral Screening Mammogram, [facility]. 10/30/2021 Bilateral Screening Mammogram, [facility]. Tissue Density: There are scattered fibroglandular densities. Analyzed By CAD. Overall Assessment: Incomplete: need additional imaging evaluation, BI-RAD 0 Management: Special View Mammogram of the left breast. Electronically signed and approved by: Willem Duran M.D.
== END | disposition home or self-care (01) ==
LOC: RADMAMWWP 09:57
PROVIDERS: ATTEND Surgery
DX: Z12.31 Encounter for screening mammogram for malignant neoplasm of breast (principal); Z78.0 Asymptomatic menopausal state
CPT/HCPCS: 77067

== ENCOUNTER → 2022-11-02 | Outpatient (CLI) | payer BC ==
--- NOTE | 2022-11-02 11:03 | MM ---
Reason for Exam: Additional evaluation requested from abnormal screening. Last screening mammogram was performed less than 1 month ago. Patient History: Menarche at age 14. First Full-Term at age 40. Late child-bearing (after 30). Postmenopausal. Currently using Estrogen, starting at age 55. Currently using Progesterone, starting at age 57. 10/21/2019, Benign Core Biopsy on the right side. Risk Values: Viola 5 year model risk: 1.9%. NCI Lifetime model risk: 13.1%. Prior Study Comparison: 10/26/2020 Bilateral Screening Mammogram, [facility]. 10/30/2021 Bilateral Screening Mammogram, [facility]. 10/30/2022 Bilateral MG screening mammo w CAD, [facility]. Tissue Density: Left: The breast tissue is heterogeneously dense. This may lower the sensitivity of mammography. Findings: Analyzed By CAD. Persistent 5 mm nodular density within the left breast only appreciated on the CC view. This persists with compression. No suspicious calcifications within the left breast. Overall Assessment: Incomplete: need additional imaging evaluation, BI-RAD 0 Management: Diagnostic Breast Ultrasound of the left breast. A clinical breast exam by your physician is recommended on an annual basis and results should be correlated with mammographic findings. This exam should not preclude additional follow-up of suspicious palpable abnormalities. Results were given to the patient verbally at the time of exam. Electronically signed and approved by: Sourav Ramirez D.O.
--- NOTE | 2022-11-02 11:13 | USB ---
Reason for Exam: Additional evaluation requested from abnormal screening. Patient History: Menarche at age 14. First Full-Term at age 40. Late child-bearing (after 30). Postmenopausal. Currently using Estrogen, starting at age 55. Currently using Progesterone, starting at age 57. 10/21/2019, Benign Core Biopsy on the right side. Risk Values: Viola 5 year model risk: 1.9%. NCI Lifetime model risk: 13.1%. Prior Study Comparison: 10/26/2020 Bilateral Screening Mammogram, [facility]. 10/30/2021 Bilateral Screening Mammogram, [facility]. 10/30/2022 Bilateral MG screening mammo w CAD, [facility]. Findings: The medial section of the breast of the left breast and the retroareolar of the left breast were scanned. Targeted ultrasound of the left breast from 6-12 o'clock was performed. There is a cluster of cysts demonstrated within the left breast at 10:00 6 Persian from the nipple measuring 0.8 x 0.4 x 0.9 cm. Overall Assessment: Benign, BI-RAD 2 Management: Screening Mammogram of both breasts in 1 year. A clinical breast exam by your physician is recommended on an annual basis and results should be correlated with mammographic findings. This exam should not preclude additional follow-up of suspicious palpable abnormalities. Results were given to the patient verbally at the time of exam. Electronically signed and approved by: Sourav Ramirez D.O.
== END | disposition home or self-care (01) ==
LOC: RADMAMWWP 09:56
PROVIDERS: ATTEND Surgery
DX: R92.8 Other abnormal and inconclusive findings on diagnostic imaging of breast (principal); Z78.0 Asymptomatic menopausal state
CPT/HCPCS: 77065

== ENCOUNTER → 2022-11-15 | Outpatient (CLI) | payer BC ==
[2022-11-15 10:07] VITALS: BP 154/100; PULSE 93; RESP 17; TEMP 97.8
--- NOTE | 2022-11-15 10:24 | P.PN ---
Subjective Progress Note Date: 11/15/22 Principal diagnosis: fibrocystic breast changes fibrocystic breast disease fibrocystic breast disease Angela is a 56-year-old white female who had a routine screening mammogram performed on . This revealed an area of indeterminate calcifications in the lateral aspect of the right breast the upper outer quadrant region. The patient was recommended to have a diagnostic mammogram of the right breast which was performed on . This revealed grouped heterogeneous calcifications upper outer quadrant for which stereotactic core biopsy was recommended. This was preformed and the results were benign. She had no history of any trauma or infection in the breast. She was not complaining of any pain in the breast. She was not complaining of any masses lumps or nodules in the breast. She had a six-month follow-up right breast mammogram on 9919 this was benign BIRADS 2. She most recently had a bilateral mammogram on 10-30-22. This led to left breast dx mammogram and ultrasound on 11-02-22 which revealed cyst. This was benign BIRAD 2. She has no complaints of any new lumps masses or nodules of concern in her breast. She is not complaining of any nipple discharge or skin changes. She is not complaining of any pain in her breasts. Personally reviewed her mammogram and ultrasound. Caffeine: 2 cups of coffee per day Nicotine: The patient does not smoke and is not exposed to secondhand smoke, she used to smoke but stopped 28 years ago chocolate: Patient does not eat chocolate secondary to migraine headaches The patient is on progesterone 200 mg daily and an estridiol patch 0.1 mg Sat and Saturday from DR. Dawson secondary to perimenopausal symptoms of hot flashes and vaginal dryness; she is having periods on this treatment Family history: mother: ovarian cancer at 32 Hormonal History: menarche: 13 , 1 miscarriage, first born at 40, breast fed: yes menopause: 53, hot flashes improved still occasional BCP: 18 years hormones: YUVFEM in the past, now treatment as above Surgical history: 1. two C-Sections 2. left knee surgery 3. back nerves "burned" 4. left hand surgery; bone removed and tendon replaced in spot 5. right hip injection Medical History: 1. 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 left wrist, deteriorating 3. arthritis 4. migraines 5. hypothyroid 6. breakthrough vaginal bleeding Social History: smoke: none alcohol: wine on weekend drugs: none - Constitutional Constitutional: Reports sweats - EENT Eyes: denies blurred vision, denies pain Ears: deny: decreased hearing, tinnitus Ears, nose, mouth and throat: Reports headache - Breasts Breasts: bilateral: as per HPI - Cardiovascular Cardiovascular: Denies chest pain, Denies shortness of breath - Respiratory Comment: former smoker Respiratory: Denies cough - Gastrointestinal Comment: had a colonoscopy last year told to return in 5 years Gastrointestinal: Reports constipation - Genitourinary (Female) Genitourinary: Denies dysuria, Denies hematuria - Menstruation Menstruation: as above - Musculoskeletal Comment: arthritis - Integumentary Integumentary: Denies pruritus, Denies rash - Neurological Neurological: Denies numbness, Denies weakness - Psychiatric Psychiatric: Denies anxiety, Denies depression - Endocrine Comment: fatigue Endocrine: Reports fatigue, Denies weight change - Hematologic/Lymphatic Objective - Vital Signs Vital signs: Vital Signs Temp 97.8 F 11/15/22 10:05 Pulse 93 11/15/22 10:05 Resp 17 11/15/22 10:05 BP 154/100 11/15/22 10:05 Pulse Ox 97 11/15/22 10:05 FiO2 Intake & Output 11/14/22 11/15/22 11/15/22 18:59 06:59 18:59 Weight 102.965 kg - Constitutional General appearance: Present: cooperative - EENT Eyes: Present: EOMI ENT: Present: hearing grossly normal - Neck Neck: Present: normal ROM - Respiratory Respiratory: bilateral: CTA - Cardiovascular Rhythm: regular Heart sounds: normal: S1, S2 - Gastrointestinal General gastrointestinal: Present: soft - Integumentary Integumentary: Present: normal turgor - Musculoskeletal Musculoskeletal: Present: gait normal - Psychiatric Psychiatric: Present: A&O x's 3, appropriate affect, intact judgment & insight - Additional findings Additional findings: Breast examination: Bra: 42C Inspection: Grade 3 ptosis bilaterally Palpation: Purpose: Multiple positional exam fibrocystic changes no dominant masses or nodules of concern Axilla: No active adenopathy of concern Left breast: Multiple positional exam fibrocystic changes no dominant masses or nodules of concern Left axilla: No adenopathy of concern Assessment and Plan Assessment: Impression: 1. 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 left wrist, deteriorating 3. arthritis 4. migraines 5. hypothyroid 6. Fibrocystic breast changes 7. breakthrough vaginal bleeding Plan: Repeat bilateral mammogram in 1 year Patient to follow up with [facility] Follow-up here in 1 year CC: Dr. Curran, Dr. Dawson
== END ==
LOC: WWCWWP 09:11
PROVIDERS: ATTEND Surgery
DX: N60.11 Diffuse cystic mastopathy of right breast (principal); Z12.31 Encounter for screening mammogram for malignant neoplasm of breast; E03.9 Hypothyroidism, unspecified; G43.909 Migraine, unspecified, not intractable, without status migrainosus; N93.9 Abnormal uterine and vaginal bleeding, unspecified; M13.80 Other specified arthritis, unspecified site; M25.832 Other specified joint disorders, left wrist; Z91.048 Other nonmedicinal substance allergy status; Z87.891 Personal history of nicotine dependence

== ENCOUNTER → 2023-01-17 | Outpatient (CLI) | payer BC ==
[2023-01-17 15:53] LABS: Basophils # (A) 0.03 X 10*3/uL (0.00-0.10); Basophils % (A) 0.5 %; Eosinophils # (A) 0.25 X 10*3/uL (0.04-0.35); HCT 44.9 % (37.2-46.3); HGB 14.2 g/dL (12.0-15.0); Immature Grans, Automated 0.3 %; Lymphocytes # (A) 1.99 X 10*3/uL (0.90-5.00); Lymphocytes % (A) 32.2 %; MCHC 31.6 g/dL (32.0-37.0); MCV 91.8 fL (80.0-97.0); Mean Platelet Volume 10.5 fL (9.5-12.2); Monocytes # (A) 0.41 X 10*3/uL (0.20-1.00); Monocytes % (A) 6.6 %; NRBC Per 100 WBC 0 /100 WBCS (0.0-0.0); Neutrophils # (A) 3.48 X 10*3/uL (1.80-7.70); Neutrophils % (A) 56.4 %; Platelet Count 287 X 10*3/uL (140-440); RBC 4.89 X 10*6/uL (4.10-5.20); RDW 12.9 % (11.5-14.5); WBC 6.18 X 10*3/uL (4.50-10.00)
== END | disposition home or self-care (01) ==
LOC: LABPAT 08:28
PROVIDERS: ATTEND Obstetrics & Gynecology
DX: Z01.812 Encounter for preprocedural laboratory examination (principal); N95.0 Postmenopausal bleeding
CPT/HCPCS: 36415; 85025

== ENCOUNTER 2023-02-15 07:52 | Day surgery (SDC) | payer BC ==
[~2023-02-15 07:52] MED LIST changes: -DEXAMETHASONE SOD PHOSPHATE 10 MG/ML 1 ML VIAL IV ONE; -LACTATED RINGERS 1,000 ML IV SCH; -MIDAZOLAM 2 MG/2 ML VIAL IV PRN; +Pre Op ABX Message 1 EACH MISC MISCELLANE ONE; -SCOPOLAMINE 1.5MG/72HR PATCH TRANSDERM ONE
[2023-02-15] MEDS ORDERED: LACTATED RINGERS 1,000 ML IV ONE (08:26)
[2023-02-15] MEDS ORDERED: LIDOCAINE 1% (10MG/ML) FOR IV START INTRADERMA ONE (08:26)
[2023-02-15] MEDS ORDERED: ONDANSETRON 4 MG/2 ML VIAL ONE ×2 (08:36→09:52)
[2023-02-15] MEDS ORDERED: ONDANSETRON 4 MG/2 ML VIAL IVP ONE (08:39)
[2023-02-15] MEDS ORDERED: DEXAMETHASONE SOD PHOSPHATE 4 MG/ML 1 ML VIAL IVP ONE (08:39)
[2023-02-15] MEDS ORDERED: SCOPOLAMINE 1 MG/72 HR PATCH TRANSDERM ONE (08:41)
[2023-02-15] MEDS ORDERED: KETOROLAC 15 MG/ML 1 ML VIAL ONE (09:52)
[2023-02-15] MEDS ORDERED: fentaNYL (PF) 50 MCG/ML 2 ML AMP ONE (09:52)
[2023-02-15] MEDS ORDERED: PROPOFOL 10 MG/ML 20 ML VIAL IV ONE (09:52)
[2023-02-15] MEDS ORDERED: SUCCINYLCHOLINE CHLORIDE 200 MG/10 ML VIAL IV ONE (09:52)
[2023-02-15] MEDS ORDERED: LIDOCAINE 2% INJ 20 MG/ML (2 ML VIAL) ONE (09:52)
[2023-02-15] MEDS ORDERED: MIDAZOLAM 2 MG/2 ML VIAL ONE (09:52)
[2023-02-15] MEDS ORDERED: LIDOCAINE 0.5%-EPI 1:200,000 50 ML VIAL SQ ONE ×2 (09:57→10:14)
--- NOTE | 2023-02-15 10:31 | P.OP ---
Date of Procedure: 02/15/23 Preoperative Diagnosis: Menopausal bleeding Cervical stenosis Thickened endometrium Postoperative Diagnosis: Postmenopausal bleeding atrophic endometrium Procedure(s) Performed: Diagnostic hysteroscopy with D&C Anesthesia: BONNIE local Surgeon: Maricruz Dawson Estimated Blood Loss (ml): 5 IV fluids (ml): 300 Urine output (ml): 25 Pathology: other (Endometrial curettings) Condition: stable Disposition: PACU Indications for Procedure: 's menopausal bleeding with findings of thickened endometrium by ultrasound, 8 mm. Cervical stenosis precluded office biopsy. Operative Findings: Atrophic endometrium with no intracavitary lesions. Description of Procedure: After the patient was met in the preoperative holding area and all questions answered, she was taken to the operating room where anesthetic was administered without incident. She was in positioned, prepped and draped in the dorsal lithotomy position. Bladder was drained for approximately 25 mL of clear urine. Exam under anesthetic was undertaken but was limited secondary to body habitus. Uterus not enlarged. Weighted speculum was then placed in the vagina and the cervix was grasped anteriorly with a single-tooth tenaculum. Paracervical block with lidocaine plus epinephrine was placed. Uterus sounded to 7 cm. Cervix sequentially dilated without difficulty with Hegar dilators to allow for passage of the diagnostic hysteroscope. The hysteroscope was introduced and a very pale and smooth and atrophic endometrium was noted. The bilateral tubal ostia were easily visualized. There were no gross intracavitary lesions, no active bleeding and no notable fluffy endometrium. The hysteroscope was then removed and the cervix was further dilated to allow for passage of the small sharp banjo curet. Banjo curet was introduced and the uterine cavity was circumferentially curettaged with scant tissue obtained consistent with findings on the hysteroscopy. Curettings were handed off as pathology specimen. Instruments removed from the cervix. Cervix was observed and no active bleeding was noted. Speculum was removed from the vagina. Patient was awoken from anesthetic without incident. She was transported recovery in good condition. All counts reported as correct
[2023-02-15] MEDS ORDERED: droPERidol 5 MG/2 ML VIAL IVP ONE (10:36)
[2023-02-15 10:49] VITALS: TEMP 97
[2023-02-15 10:50] VITALS: RESP 16
[2023-02-15 12:02] VITALS: BP 124/71; PULSE 95
== END 2023-02-15 12:22 | disposition home or self-care (01) ==
LOC: OR 07:52
PROVIDERS: ATTEND Obstetrics & Gynecology
DX: N92.4 Excessive bleeding in the premenopausal period (principal); M48.02 Spinal stenosis, cervical region; N85.8 Other specified noninflammatory disorders of uterus; E78.5 Hyperlipidemia, unspecified; E07.9 Disorder of thyroid, unspecified; K21.9 Gastro-esophageal reflux disease without esophagitis; Z79.899 Other long term (current) drug therapy; Z98.890 Other specified postprocedural states
CPT/HCPCS: 58558; J2250; J0330; J1100; J2405; J3010; J1885; J2704; J1790; J2001; 88305

== ENCOUNTER → 2023-09-26 | Outpatient (CLI) | payer BC ==
[2023-09-26 10:30] LABS: INR 0.9 (<1.2); Partial Thromboplastin Time 22.6 sec (22.0-30.0); Prothrombin Time 9.8 sec (10.0-12.5)
[2023-09-26 16:41] LABS: HCT 48.1 % (37.2-46.3); HGB 15.5 g/dL (12.0-15.0); MCH 28.9 pg (27.0-32.0); MCHC 32.2 g/dL (32.0-37.0); MCV 89.7 FL (80.0-97.0); Mean Platelet Volume 10.3 FL (9.5-12.2); NRBC Per 100 WBC 0 X 10*3/uL (0.00-0.01); Platelet Count 336 X 10*3/uL (140-440); RBC 5.36 X 10*6/uL (4.10-5.20); RDW 13.1 % (11.5-14.5); WBC 6.97 X 10*3/uL (4.50-10.00)
[2023-09-26 17:01] LABS: ALT 26 U/L (8-44); AST 19 U/L (13-35); Albumin 4.7 g/dL (3.8-4.9); Albumin/Globulin Ratio 1.88 Ratio (1.60-3.17); Alkaline Phosphatase 102 U/L (41-126); BUN/Creat Ratio 19.89 Ratio (12.00-20.00); Blood Urea Nitrogen 17.9 mg/dL (9.0-27.0); Calcium 10.2 mg/dL (8.7-10.3); Carbon Dioxide 26.8 mmol/L (21.6-31.8); Chloride 100 mmol/L (96-109); Globulin 2.5 g/dL (1.6-3.3); Glucose 91 mg/dL (70-110); Potassium 4.8 mmol/L (3.5-5.5); Sodium 139 mmol/L (135-145); Total Bilirubin 0.4 mg/dL (0.3-1.2); Total Protein 7.2 g/dL (6.2-8.2)
== END | disposition home or self-care (01) ==
LOC: LABWHC1 08:39
PROVIDERS: ATTEND Family Medicine
DX: Z01.810 Encounter for preprocedural cardiovascular examination (principal)
CPT/HCPCS: 36415; 80053; 83036; 85027; 85610; 85730; 86850; 86900; 86901

== ENCOUNTER → 2023-12-10 | Outpatient (CLI) | payer BC ==
--- NOTE | 2023-12-12 13:19 | MM ---
Reason for Exam: Screening (asymptomatic). Last mammogram was performed 1 year(s) and 1 month(s) ago. Patient History: Menarche at age 14. First Full-Term at age 40. Late child-bearing (after 30). Postmenopausal. Currently using Estrogen, starting at age 55. Currently using Progesterone, starting at age 57. 10/21/2019, Benign Core Biopsy on the right side. Risk Values: Viola 5 year model risk: 2.0%. NCI Lifetime model risk: 12.8%. Prior Study Comparison: 10/30/2021 Bilateral Screening Mammogram, [facility]. 10/30/2022 Bilateral MG screening mammo w CAD, [facility]. 11/02/2022 Left MG work up mamm w CAD LT, [facility]. Tissue Density: The breasts are heterogeneously dense, which may obscure small masses. Findings: Analyzed By CAD. There is no suspicious group of microcalcifications or new suspicious mass in either breast. Overall Assessment: Benign, BI-RAD 2 Management: Screening Mammogram of both breasts in 1 year. . Patient should continue monthly self-breast exams. A clinical breast exam by your physician is recommended on an annual basis. This exam should not preclude additional follow-up of suspicious palpable abnormalities. Note on Viola scores and lifetime risk: 1. A Viola score greater than 3% is considered moderate risk. If this is the case, consider specialist referral to assess eligibility for a risk reducing agent. 2. If overall lifetime risk for the development of breast cancer is 20% or higher, the patient may qualify for future screening with alternating mammogram and breast MRI. Electronically signed and approved by: Thuan Farris M.D. Radiologis
== END | disposition home or self-care (01) ==
LOC: RADMAMWWP 12:04
PROVIDERS: ATTEND Surgery
DX: Z12.31 Encounter for screening mammogram for malignant neoplasm of breast (principal); Z78.0 Asymptomatic menopausal state
CPT/HCPCS: 77063; 77067

== ENCOUNTER → 2023-12-20 | Outpatient (CLI) | payer BC ==
--- NOTE | 2023-12-20 11:08 | P.PN ---
Subjective Progress Note Date: 12/20/23 Principal diagnosis: fibrocystic breast disease 11/15/22 Principal diagnosis: fibrocystic breast changes fibrocystic breast disease Angela is a 56-year-old white female who had a routine screening mammogram performed on . This revealed an area of indeterminate calcifications in the lateral aspect of the right breast the upper outer quadrant region. The patient was recommended to have a diagnostic mammogram of the right breast which was performed on . This revealed grouped heterogeneous calcifications upper outer quadrant for which stereotactic core biopsy was recommended. This was preformed and the results were benign. She had no history of any trauma or infection in the breast. She was not complaining of any pain in the breast. She was not complaining of any masses lumps or nodules in the breast. She had a six-month follow-up right breast mammogram on 9919 this was benign BIRADS 2. She most recently had a bilateral mammogram on 10-30-22. This led to left breast dx mammogram and ultrasound on 11-02-22 which revealed cyst. This was benign BIRAD 2. She has no complaints of any new lumps masses or nodules of concern in her breast. She is not complaining of any nipple discharge or skin changes. She is not complaining of any pain in her breasts. Personally reviewed her mammogram and ultrasound. 12-20-23 bilateral mammogram 12-10-23 BIRAD 2 personally reviewed And of any new lumps masses or nodules of concern in either breast Last year The patient was on progesterone 200 mg daily and an estridiol patch 0.1 mg Sat and Saturday from DR. Dawson secondary to perimenopausal symptoms of hot flashes and vaginal dryness; she was having periods on this treatment The patient is now taking a progesterone vaginal insert as per , she is not using any estrogen she is following with Dr. Valerio no further vaginal bleeding Caffeine: 2 cups of coffee per day Nicotine: The patient does not smoke and is not exposed to secondhand smoke, she used to smoke but stopped 28 years ago chocolate: Patient does not eat chocolate secondary to migraine headaches The patient is on progesterone 200 mg daily and an estridiol patch 0.1 mg Sat and Saturday from DR. Dawson secondary to perimenopausal symptoms of hot flashes and vaginal dryness; she is having periods on this treatment Family history: mother: ovarian cancer at 32 Hormonal History: menarche: 13 , 1 miscarriage, first born at 40, breast fed: yes menopause: 53, hot flashes improved still occasional BCP: 18 years hormones: YUVFEM in the past, now treatment as above Surgical history: 1. two C-Sections 2. left knee surgery 3. back nerves "burned" 4. left hand surgery; bone removed and tendon replaced in spot 5. right hip total replacement; October 20, 2023 Medical History: 1. 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 left wrist, deteriorating 3. arthritis 4. migraines 5. hypothyroid 6. breakthrough vaginal bleeding Social History: smoke: none alcohol: wine on weekend drugs: none - Constitutional Constitutional: Reports sweats - EENT Eyes: denies blurred vision, denies pain Ears: deny: decreased hearing, tinnitus Ears, nose, mouth and throat: Reports headache - Breasts Breasts: bilateral: as per HPI - Cardiovascular Cardiovascular: Denies chest pain, Denies shortness of breath - Respiratory Comment: former smoker Respiratory: Denies cough - Gastrointestinal Comment: had a colonoscopy last year told to return in 5 years Gastrointestinal: Reports constipation - Genitourinary (Female) Genitourinary: Denies dysuria, Denies hematuria - Menstruation Menstruation: as above - Musculoskeletal Comment: arthritis - Integumentary Integumentary: Denies pruritus, Denies rash - Neurological Neurological: Denies numbness, Denies weakness - Psychiatric Psychiatric: Denies anxiety, Denies depression - Endocrine Comment: fatigue Endocrine: Reports fatigue, Denies weight change - Hematologic/Lymphatic Objective - Vital Signs Vital signs: Vital Signs Temp 98.1 F 12/20/23 10:54 Pulse 67 12/20/23 10:54 Resp 17 12/20/23 10:54 BP 120/82 12/20/23 10:54 Pulse Ox 96 12/20/23 10:54 FiO2 Intake & Output 12/19/23 12/20/23 12/20/23 18:59 06:59 18:59 Weight 91.626 kg - Constitutional General appearance: Present: cooperative - EENT Eyes: Present: EOMI ENT: Present: hearing grossly normal - Neck Neck: Present: normal ROM - Respiratory Respiratory: bilateral: CTA - Cardiovascular Rhythm: regular Heart sounds: normal: S1, S2 - Gastrointestinal General gastrointestinal: Present: soft - Integumentary Integumentary: Present: normal turgor - Musculoskeletal Musculoskeletal: Present: gait normal - Psychiatric Psychiatric: Present: A&O x's 3, appropriate affect, intact judgment & insight - Additional findings Additional findings: Breast examination: Bra: 42C Inspection: Grade 3 ptosis bilaterally Palpation: Purpose: Multi positional exam fibrocystic changes no dominant masses or nodules of concern Axilla: No active adenopathy of concern Left breast: Multiple positional exam fibrocystic changes no dominant masses or nodules of concern Left axilla: No adenopathy of concern Assessment and Plan Assessment: Impression: 1. 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 left wrist, deteriorating 3. arthritis 4. migraines 5. hypothyroid 6. Fibrocystic breast changes 7. breakthrough vaginal bleeding/ resolved 8. bilateral mammogram 12-10-23 BIRAD 2 Plan: Repeat bilateral mammogram in 1 year Patient to follow up with [facility] Follow-up here in 1 year CC: Dr. Curran, Dr. Dawson
[2023-12-20 11:09] VITALS: BP 120/82; PULSE 67; RESP 17; TEMP 98.1
== END ==
LOC: WWCWWP 10:41
PROVIDERS: ATTEND Surgery
DX: R92.8 Other abnormal and inconclusive findings on diagnostic imaging of breast (principal); R92.1 Mammographic calcification found on diagnostic imaging of breast; M54.50 Low back pain, unspecified; M19.032 Primary osteoarthritis, left wrist; G43.909 Migraine, unspecified, not intractable, without status migrainosus; E03.9 Hypothyroidism, unspecified; N60.11 Diffuse cystic mastopathy of right breast; N60.12 Diffuse cystic mastopathy of left breast; Z79.890 Hormone replacement therapy; Z91.048 Other nonmedicinal substance allergy status; Z87.891 Personal history of nicotine dependence

== ENCOUNTER → 2024-12-14 | Outpatient (CLI) | payer BC ==
--- NOTE | 2024-12-14 12:11 | MM ---
Reason for Exam: Screening (asymptomatic). Last screening mammogram was performed 12 month(s) ago. Patient History: Menarche at age 14. First Full-Term at age 40. Late child-bearing (after 30). Postmenopausal. Currently using Estrogen, starting at age 55. Currently using Progesterone, starting at age 57. 10/21/2019, Benign Core Biopsy on the right side. Risk Values: Viola 5 year model risk: 2.1%. NCI Lifetime model risk: 12.5%. Prior Study Comparison: 10/30/2022 Bilateral MG screening mammo w CAD, [facility]. 11/02/2022 Left MG work up mamm w CAD LT, [facility]. 12/10/2023 Bilateral MG 3D screening mammo w/cad, [facility]. Tissue Density: The breasts are heterogeneously dense, which may obscure small masses. Findings: Analyzed By CAD. Mammotome biopsy clip in the right breast is redemonstrated There is no suspicious new group of microcalcifications or new suspicious mass in either breast. Overall Assessment: Benign, BI-RAD 2 Management: Screening Mammogram of both breasts in 1 year. . Patient should continue monthly self-breast exams. A clinical breast exam by your physician is recommended on an annual basis. This exam should not preclude additional follow-up of suspicious palpable abnormalities. Note on Viola scores and lifetime risk: 1. A Viola score greater than 3% is considered moderate risk. If this is the case, consider specialist referral to assess eligibility for a risk reducing agent. 2. If overall lifetime risk for the development of breast cancer is 20% or higher, the patient may qualify for future screening with alternating mammogram and breast MRI. [facility], , 12/14/2024 12:09 PM. Electronically signed and approved by: Willem Duran M.D.
== END | disposition home or self-care (01) ==
LOC: RADMAMWWP 10:13
PROVIDERS: ATTEND Surgery
DX: Z12.31 Encounter for screening mammogram for malignant neoplasm of breast (principal); R92.333 Mammographic heterogeneous density, bilateral breasts; Z78.0 Asymptomatic menopausal state
CPT/HCPCS: 77063; 77067

== ENCOUNTER → 2024-12-17 | Outpatient (CLI) | payer BC ==
[2024-12-17 10:01] VITALS: BP 110/76; PULSE 93; RESP 17; TEMP 97.6
--- NOTE | 2024-12-17 10:01 | P.PN ---
Subjective Progress Note Date: 12/17/24 Principal diagnosis: fibrocystic breast changes 12-17-24 Principal diagnosis: fibrocystic breast changes [birth year] fibrocystic breast disease Angela is a 56-year-old white female who had a routine screening mammogram performed on . This revealed an area of indeterminate calcifications in the lateral aspect of the right breast the upper outer quadrant region. The patient was recommended to have a diagnostic mammogram of the right breast which was performed on . This revealed grouped heterogeneous calcifications upper outer quadrant for which stereotactic core biopsy was recommended. This was preformed and the results were benign. She had no history of any trauma or infection in the breast. She was not complaining of any pain in the breast. She was not complaining of any masses lumps or nodules in the breast. She had a six-month follow-up right breast mammogram on 9919 this was benign BIRADS 2. She most recently had a bilateral mammogram on 10-30-22. This led to left breast dx mammogram and ultrasound on 11-02-22 which revealed cyst. This was benign BIRAD 2. She has no complaints of any new lumps masses or nodules of concern in her breast. She is not complaining of any nipple discharge or skin changes. She is not complaining of any pain in her breasts. Personally reviewed her mammogram and ultrasound. 12-20-23 bilateral mammogram 12-10-23 BIRAD 2 personally reviewed not complaining of any new lumps masses or nodules of concern in either breast Last year The patient was on progesterone 200 mg daily and an estridiol patch 0.1 mg Sat and Saturday from DR. Dawson secondary to perimenopausal symptoms of hot flashes and vaginal dryness; she was having periods on this treatment The patient is now taking a progesterone vaginal insert as per , she is not using any estrogen she is following with Dr. 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 She is not using vaginal inserts at this time. She is taking a progesterone pill 100 mg daily Caffeine: 2 cups of coffee per day Nicotine: The patient does not smoke and is not exposed to secondhand smoke, she used to smoke but stopped 28 years ago chocolate: Patient does not eat chocolate secondary to migraine headaches The patient is on progesterone 200 mg daily and an estridiol patch 0.1 mg Sat and Saturday from DR. Dawson secondary to perimenopausal symptoms of hot flashes and vaginal dryness; she is having periods on this treatment Family history: mother: ovarian cancer at 32 Hormonal History: menarche: 13 , 1 miscarriage, first born at 40, breast fed: yes menopause: 53, hot flashes improved still occasional BCP: 18 years hormones: YUVFEM in the past, now treatment as above Surgical history: 1. two C-Sections 2. left knee surgery 3. back nerves "burned" 4. left hand surgery; bone removed and tendon replaced in spot 5. right hip total replacement; October 20, 2023 6. excision of vaginal skin vaginal intraepitheal neoplasia/ November 04, 2024 Dr. Valerio Medical History: 1. 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 left wrist, deteriorating 3. arthritis 4. migraines 5. hypothyroid 6. breakthrough vaginal bleeding following with [employer] Social History: smoke: none alcohol: wine on weekend drugs: none - Constitutional Constitutional: Reports sweats - EENT Eyes: denies blurred vision, denies pain Ears: deny: decreased hearing, tinnitus Ears, nose, mouth and throat: Reports headache - Breasts Breasts: bilateral: as per HPI - Cardiovascular Cardiovascular: Denies chest pain, Denies shortness of breath - Respiratory Comment: former smoker Respiratory: Denies cough - Gastrointestinal Comment: had a colonoscopy last year told to return in 5 years Gastrointestinal: Reports constipation - Genitourinary (Female) Genitourinary: Denies dysuria, Denies hematuria - Menstruation Menstruation: as above - Musculoskeletal Comment: arthritis - Integumentary Integumentary: Denies pruritus, Denies rash - Neurological Neurological: Denies numbness, Denies weakness - Psychiatric Psychiatric: Denies anxiety, Denies depression - Endocrine Comment: fatigue Endocrine: Reports fatigue, Denies weight change - Hematologic/Lymphatic Objective - Constitutional General appearance: Present: cooperative - EENT Eyes: Present: EOMI ENT: Present: hearing grossly normal - Neck Neck: Present: normal ROM - Respiratory Respiratory: bilateral: CTA - Cardiovascular Rhythm: regular Heart sounds: normal: S1, S2 - Integumentary Integumentary: Present: normal turgor - Musculoskeletal Musculoskeletal: Present: gait normal - Psychiatric Psychiatric: Present: A&O x's 3, appropriate affect, intact judgment & insight - Additional findings Additional findings: Breast examination: Bra: 42C Inspection: Grade 3 ptosis bilaterally Palpation: Purpose: Multi positional exam fibrocystic changes no dominant masses or nodules of concern Axilla: No active adenopathy of concern Left breast: Multiple positional exam fibrocystic changes no dominant masses or nodules of concern Left axilla: No adenopathy of concern Assessment and Plan Assessment: Impression: 1. 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 left wrist, deteriorating 3. arthritis 4. migraines 5. hypothyroid 6. Fibrocystic breast changes 7. breakthrough vaginal bleeding/ resolved 8. bilateral mammogram 12-14-24 BIRAD 2 Plan: Repeat bilateral mammogram in 1 year Patient to follow up with [facility] Follow-up here in 1 year CC: Dr. Curran, Dr. Dawson
== END ==
LOC: WWCWWP 09:33
PROVIDERS: ATTEND Surgery
DX: N60.19 Diffuse cystic mastopathy of unspecified breast (principal); M19.90 Unspecified osteoarthritis, unspecified site; M54.9 Dorsalgia, unspecified; G43.909 Migraine, unspecified, not intractable, without status migrainosus; E03.9 Hypothyroidism, unspecified; M19.032 Primary osteoarthritis, left wrist; Z91.048 Other nonmedicinal substance allergy status; Z87.891 Personal history of nicotine dependence

== ENCOUNTER → 2025-02-23 | Outpatient (CLI) | payer BC ==
[2025-02-23 09:16] LABS: INR 0.9 (<1.2); Prothrombin Time 10.4 sec (10.0-12.5)
[2025-02-23 09:22] LABS: Partial Thromboplastin Time 22.1 sec (22.0-30.0)
[2025-02-23 15:36] LABS: HCT 45.5 % (37.2-46.3); HGB 14.9 g/dL (12.0-15.0); MCH 30.1 pg (27.0-32.0); MCHC 32.7 g/dL (32.0-37.0); MCV 91.9 FL (80.0-97.0); NRBC Per 100 WBC 0 X 10*3/uL (0.00-0.01); Platelet Count 237 X 10*3/uL (140-440); RBC 4.95 X 10*6/uL (4.10-5.20); RDW 13.0 % (11.5-14.5); WBC 5.48 X 10*3/uL (4.50-10.00)
[2025-02-23 15:48] LABS: Anion Gap 10.90 mmol/L (4.00-12.00); BUN/Creat Ratio 28.56 Ratio (12.00-20.00); Blood Urea Nitrogen 25.7 mg/dL (9.0-27.0); Carbon Dioxide 27.1 mmol/L (21.6-31.8); Chloride 104 mmol/L (96-109); Cholesterol 202.00 mg/dL (0.00-200.00); Glucose 98 mg/dL (70-110); HDL Cholesterol 63.00 mg/dL (40.00-60.00); LDL Cholesterol,Calculated 124.7 mg/dL (0.0-131.0); Potassium 4.7 mmol/L (3.5-5.5); Sodium 142 mmol/L (135-145); Triglycerides 71.50 mg/dL (0.00-149.00); VLDL Calculation 14.30 mg/dL (5.00-40.00)
[2025-02-23 15:49] LABS: ALT 22 U/L (8-44); AST 22 U/L (13-35); Albumin 4.5 g/dL (3.8-4.9); Albumin/Globulin Ratio 1.96 Ratio (1.60-3.17); Alkaline Phosphatase 82 U/L (41-126); Calcium 9.5 mg/dL (8.7-10.3); Globulin 2.3 g/dL (1.6-3.3); Total Protein 6.8 g/dL (6.2-8.2)
== END | disposition home or self-care (01) ==
LOC: LABWHC1 08:12
PROVIDERS: ATTEND Family Medicine
DX: Z01.812 Encounter for preprocedural laboratory examination (principal); E78.2 Mixed hyperlipidemia; R63.5 Abnormal weight gain
CPT/HCPCS: 36415; 80053; 80061; 83036; 85027; 85610; 85730